=== PATIENT | female | born 1985 | race Hispanic/Latino ===

== ENCOUNTER 2017-10-16 15:31 | Inpatient (IN) | payer BC, OTHER ==
[2017-10-16] MEDS ORDERED: Ondansetron HCl/PF 4 MG/2 ML Vial IVP PRN (22:26)
[2017-10-16] MEDS ORDERED: Ibuprofen 800 MG TAB PO PRN (22:26)
[2017-10-16] MEDS ORDERED: HYDROcodone/Acetaminophen 5/325 mg Tablet PO PRN (22:26)
[2017-10-16] MEDS ORDERED: Acetaminophen 500 MG TAB PO PRN (22:26)
[2017-10-16] MEDS ORDERED: Promethazine HCl 25 MG/ML VIAL IM PRN (22:26)
[2017-10-16] MEDS ORDERED: Acetaminophen/Codeine 30-300mg Tablet PO PRN (22:26)
[2017-10-16] MEDS ORDERED: Zolpidem Tartrate 5 MG TAB PO PRN (22:26)
[2017-10-16] MEDS ORDERED: Lidocaine 1% (PF) 30 ML VIAL SC PRN (22:26)
[2017-10-16] MEDS ORDERED: LR 500 ML/Oxytocin 10 units 500 ML IV SCH ×2 (22:26)
[2017-10-16] MEDS ORDERED: Misoprostol 200 MCG TAB PR PRN (22:26)
[2017-10-16 22:51] VITALS: BMI 34.7
[2017-10-16] MEDS ORDERED: CEFAZOLIN/Water 2 GM/20 ML SYRINGE SLOW IVP SCH (23:00)
[2017-10-16] MEDS: Lactated Ringer's 1,000 ML IV SCH (23:30)
[2017-10-16] MEDS: Misoprostol 100 MCG TAB VAG SCH (23:30)
[2017-10-17 00:07] LABS: Hemoglobin 12.4 g/dL (12.0-16.0); Mean Corpuscular HGB CONC 34.6 g/dL (32.0-36.0); Mean Corpuscular Hemoglobin 31.8 pg (27.0-31.0); Mean Corpuscular Volume 91.9 fl (81.0-99.0); Mean Platelet Volume 7.9 fL (7.4-10.4); Platelet Count 246 thou/uL (130-400); RBC Distribution Width 11.8 % (11.5-14.5); Red Blood Cell (RBC) Count 3.89 mill/uL (4.20-5.40); White Blood Cell (WBC) Count 10.4 thou/uL (4.8-10.8)
[2017-10-17 00:37] LABS: Syphilis Antibody Nonreactive (Nonreactive); Syphilis Antibody Index 0.04 S/CO (<1.00 Non-Reactive)
[2017-10-17 00:58] LABS: Hep B Surf Ag Non-Reactive S/CO (NonReactive)
[2017-10-17] MEDS: Lactated Ringer's 1,000 ML IV SCH ×2 (07:04→18:13)
[2017-10-17] MEDS: Misoprostol 100 MCG TAB VAG SCH ×3 (07:09→07:36)
[2017-10-17] MEDS: CEFAZOLIN 1 GM in Syringe 10 ML SLOW IVP SCH ×2 (08:09→18:13)
[2017-10-17] MEDS ORDERED: Lidocaine 1% (PF) 30 ML VIAL ONE (13:42)
[2017-10-17] MEDS: LR / Pitocin 40 units/1000 ml 1,000 ML IV PRN ×2 (13:43→15:36)
[2017-10-17] MEDS ORDERED: Lanolin Ointment 7 GM TUBE TOP PRN (16:47)
[2017-10-17] MEDS ORDERED: Milk Of Magnesia 30 ML UDCUP PO PRN (16:47)
[2017-10-17] MEDS ORDERED: HYDROcodone/Acetaminophen 5/325 mg Tablet PO PRN (16:47)
[2017-10-17] MEDS ORDERED: LR / Pitocin 40 units/1000 ml 1,000 ML IV SCH (16:47)
[2017-10-17] MEDS ORDERED: Bisacodyl 10 MG SUPP PR PRN (16:47)
[2017-10-17] MEDS ORDERED: Ondansetron HCl/PF 4 MG/2 ML Vial IVP PRN (16:47)
[2017-10-17] MEDS: Ferrous Sulfate 325 MG TAB PO SCH (18:13)
[2017-10-17] MEDS: Prenatal Vitamin 1 TAB PO SCH (18:18)
[2017-10-17] MEDS: Docusate Calcium (SURFAK) 240 MG CAP PO SCH (20:47)
[2017-10-17] MEDS: Acetaminophen/Codeine 30-300mg Tablet PO PRN (22:32)
[2017-10-18] MEDS: Acetaminophen/Codeine 30-300mg Tablet PO PRN ×2 (04:30→11:37)
[2017-10-18] MEDS: Ferrous Sulfate 325 MG TAB PO SCH (08:49)
[2017-10-18] MEDS: Prenatal Vitamin 1 TAB PO SCH (08:52)
[2017-10-18] MEDS: Docusate Calcium (SURFAK) 240 MG CAP PO SCH (08:52)
[2017-10-18 12:44] VITALS: BP 94/50; TEMP 98.4
[2017-10-18] MEDS ORDERED: Ibuprofen 800 MG TAB PO SCH (17:00)
== END 2017-10-18 17:54 | disposition home or self-care (01) | DRG 775 ==
LOC: L&D 22:10 → 3SW 10-17 16:34
PROVIDERS: ADMIT Family Medicine; ATTEND Family Medicine
PROC: 10E0XZZ Delivery of Products of Conception, External Approach (ICD-10-PCS; principal; 2017-10-17)
PROC: 10907ZC Drainage of Amniotic Fluid, Therapeutic from Products of Conception, Via Natural or Artificial Opening (ICD-10-PCS; 2017-10-17)
PROC: 4A0HXCZ Measurement of Products of Conception, Cardiac Rate, External Approach (ICD-10-PCS; 2017-10-17)
DX: O76 Abnormality in fetal heart rate and rhythm complicating labor and delivery (principal); O70.9 Perineal laceration during delivery, unspecified; Z3A.39 39 weeks gestation of pregnancy; Z37.0 Single live birth
CPT/HCPCS: 85027; 86780; 87340; 99285; J0595; J0690; J2001; J2550; J7120